=== PATIENT | female | born 2000 | race Caucasian/White ===

== ENCOUNTER 2022-11-10 03:43 | Inpatient (IN) | payer BC ==
[~2022-11-10] VITALS: Ht 167.6 cm; Wt 89.4 kg
[2022-11-10 03:50] VITALS: BP_SYST 188; PULSE 63; RESP 17; O2SAT 100
[2022-11-10] MEDS ORDERED: LORazepam 2 MG/ML VIAL IVP ONE (04:15)
[2022-11-10] MEDS ORDERED: DICYCLOMINE HCL 10 MG/5 ML SOLUTION PO ONE (04:15)
[2022-11-10] MEDS ORDERED: FAMOTIDINE PF 20 MG/2 ML VIAL IVP ONE (04:15)
[2022-11-10] MEDS ORDERED: KETOROLAC TROMETHAMINE 30 MG VIAL IVP ONE (04:15)
[2022-11-10] MEDS ORDERED: NACL 0.9% 1,000 ML IV ONE ×2 (04:15→05:30)
[2022-11-10] MEDS ORDERED: DEXAMETHASONE SOD PHOSPHATE 10 MG/ML VIAL IVP ONE (05:00)
[2022-11-10 05:16] LABS: BASOPHILS % (AUTO) 0.3 % (0.0-2.0); HEMATOCRIT 40.3 % (36-48); LYMPHOCYTES # (AUTO) 0.7 K/uL (1.0-5.5); LYMPHOCYTES % (AUTO) 5.2 % (20.5-51.5); MEAN CORPUSCULAR HEMOGLOBIN 26 pg (27-31); MEAN CORPUSCULAR HGB CONC 32 % (32-36); MEAN CORPUSCULAR VOLUME 82 fL (79.0-98.0); MONOCYTES # (AUTO) 0.4 K/uL (0.0-1.0); MONOCYTES % (AUTO) 2.9 % (1.7-9.3); NEUTROPHILS # (AUTO) 13.2 K/uL (1.8-7.7); NEUTROPHILS % (AUTO) 91.6 % (40.0-70.0); PLATELET COUNT (AUTO) 329 K/uL (130-430); RED BLOOD CELL COUNT(AUTO) 4.92 MIL/uL (4.2-6.2); WHITE BLOOD COUNT (AUTO) 14.4 K/uL (4.8-10.8)
[2022-11-10] MEDS ORDERED: ONDANSETRON HCL 4 MG/2 ML VIAL IVP ONE (05:30)
[2022-11-10 05:46] LABS: CALCIUM 8.9 mg/dL (8.4-11.0); CREATININE 0.86 mg/dL (0.55-1.30)
[2022-11-10 05:49] LABS: ALBUMIN 4.1 g/dL (3.4-4.8)
[2022-11-10] MEDS ORDERED: MORPHINE 2 MG/ML INJ. SYRINGE IVP PRN (06:15)
[2022-11-10] MEDS: MORPHINE 4 MG INJ. 4 MG/ML VIAL IVP PRN ×5 (07:53→23:16)
[2022-11-10] MEDS ORDERED: SCOPOLAMINE HYDROBROMIDE 1 MG PATCH .72 H (TRANSDERM-SCOP) TD SCH (09:00)
[2022-11-10] MEDS: ONDANSETRON HCL 4 MG/2 ML VIAL IVP PRN ×2 (12:33→19:11)
[2022-11-10] MEDS: D5/0.45 NS 1,000 ML IV SCH ×2 (16:15→23:17)
[2022-11-10] MEDS ORDERED: LORazepam 2 MG/ML VIAL IVP PRN (18:30)
[2022-11-10 21:00] VITALS: BP_SYST 165; PULSE 53; RESP 18; TEMP 98.5; O2SAT 95
[2022-11-11 01:04] VITALS: BP_SYST 137; PULSE 51; RESP 14; TEMP 98.9; O2SAT 99
[2022-11-11] MEDS: D5/0.45 NS 1,000 ML IV SCH ×2 (05:53→13:30)
[2022-11-11] MEDS: MORPHINE 4 MG INJ. 4 MG/ML VIAL IVP PRN ×5 (05:53→23:03)
[2022-11-11 06:13] LABS: BASOPHILS # (AUTO) 0.1 K/uL (0.0-0.2); BASOPHILS % (AUTO) 0.2 % (0.0-2.0); HEMATOCRIT 40.2 % (36-48); LYMPHOCYTES % (AUTO) 8.6 % (20.5-51.5); MEAN CORPUSCULAR HEMOGLOBIN 27 pg (27-31); MEAN CORPUSCULAR HGB CONC 32 % (32-36); MEAN CORPUSCULAR VOLUME 82 fL (79.0-98.0); MONOCYTES # (AUTO) 1.8 K/uL (0.0-1.0); MONOCYTES % (AUTO) 8.1 % (1.7-9.3); NEUTROPHILS # (AUTO) 18.8 K/uL (1.8-7.7); PLATELET COUNT (AUTO) 318 K/uL (130-430); RED BLOOD CELL COUNT(AUTO) 4.88 MIL/uL (4.2-6.2); RED CELL DISTRIBUTION WIDTH 14.3 % (9.0-15.0); WHITE BLOOD COUNT (AUTO) 22.7 K/uL (4.8-10.8)
[2022-11-11 06:35] LABS: CALCIUM 8.8 mg/dL (8.4-11.0); CREATININE 1.08 mg/dL (0.55-1.30)
[2022-11-11 08:00] VITALS: BP_SYST 149; PULSE 60; RESP 18; TEMP 98.7; O2SAT 94
[2022-11-11 09:56] LABS: NEUTROPHILS % (AUTO) 83.1 % (40.0-70.0)
[2022-11-11] MEDS ORDERED: PANTOPRAZOLE SODIUM 40 MG TAB PO ONE (12:30)
[2022-11-11 12:43] VITALS: BP_SYST 155; PULSE 68; RESP 20; TEMP 97.8; O2SAT 98
[2022-11-11] MEDS ORDERED: PIPERACILLIN/TAZO 4.5GM/DEX-IS 100 ML IV SCH (14:00)
[2022-11-11] MEDS: ONDANSETRON HCL 4 MG/2 ML VIAL IVP PRN ×2 (14:12→23:03)
[2022-11-11 16:16] VITALS: BP_SYST 131; PULSE 64; RESP 14; TEMP 98.1; O2SAT 99
[2022-11-11 16:42] VITALS: O2SAT 98
[2022-11-12] VITALS: BP_SYST 139; PULSE 64; RESP 18; TEMP 99.1; O2SAT 95
[2022-11-12 00:21] VITALS: BP_SYST 139; PULSE 64; RESP 18; TEMP 99.1; O2SAT 95
[2022-11-12] MEDS ORDERED: PANTOPRAZOLE SODIUM 40 MG TAB PO SCH (09:00)
== END 2022-11-12 01:40 | disposition short-term general hospital (02) | DRG 440 ==
LOC: SED 03:43 → SMU 06:08
PROVIDERS: ADMIT Preventive Medicine Preventive Medicine/Occupational Environmental Medicine; ATTEND Preventive Medicine Preventive Medicine/Occupational Environmental Medicine
DX: K85.90 Acute pancreatitis without necrosis or infection, unspecified (principal); F12.90 Cannabis use, unspecified, uncomplicated; E87.6 Hypokalemia; R73.9 Hyperglycemia, unspecified; D72.829 Elevated white blood cell count, unspecified; E66.9 Obesity, unspecified; K80.20 Calculus of gallbladder without cholecystitis without obstruction; Z68.31 Body mass index [BMI] 31.0-31.9, adult
CPT/HCPCS: 36415; 71045; 76376; 80048; 80053; 80061; 82150; 83605; 83690; 85025; 87040; 93005; 99285; J1100; J1885; J2060; J2270; J2405; J2543; J3490